=== PATIENT | female | born 1990 | race Caucasian/White ===

== ENCOUNTER 2024-08-18 18:50 | Emergency (ER) | payer SELFPAY ==
[~2024-08-18] VITALS: Ht 162.6 cm; Wt 56.7 kg
--- NOTE | 2024-08-18 19:22 | NUR ---
AT THIS TIME PATIENT IS REFUSING TO HAVE HER LABS DRAWN STATING "I HAVE RIGHTS"
[2024-08-18 19:40] VITALS: BP 124/74; PULSE 66; RESP 20; TEMP 98.7; O2SAT 100
[2024-08-18 19:49] LABS: APPEARANCE,URINE CLOUDY (CLEAR); BILIRUBIN,URINE NEGATIVE (NEGATIVE); COLOR,URINE YELLOW (YELLOW); GLUCOSE, URINE (UA) NEGATIVE (NEGATIVE); KETONES,URINE NEGATIVE (NEGATIVE); LEUKOCYTE ESTERASE ,URINE 75 Leu/uL (NEGATIVE); NITRATE,URINE NEGATIVE (NEGATIVE); OCCULT BLOOD,URINE NEGATIVE (NEGATIVE); PH,URINE 6.5 (5.0-8.0); PROTEIN,URINE 20 mg/dL (NEGATIVE); UROBILINOGEN,URINE 0.2 mg/dL (0.2-1.0)
[2024-08-18 19:53] LABS: ADD UA MICROSCOPIC YES
[2024-08-18 20:03] LABS: AMPHET/METH SCREEN,URINE NEGATIVE (NEGATIVE); BARBITURATE SCREEN, URINE NEGATIVE (NEGATIVE); BENZODIAZEPINES SCREEN,URINE NEGATIVE (NEGATIVE); CANNABINOID SCREEN,URINE NEGATIVE (NEGATIVE); COCAINE SCREEN,URINE POSITIVE (NEGATIVE); OPIATE SCREEN,URINE NEGATIVE (NEGATIVE); PHENCYCLIDINE SCREEN,URINE NEGATIVE (NEGATIVE)
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
[2024-08-18 20:09] LABS: BACTERIA,URINE RARE /HPF (None Seen); MUCUS,URINE RARE LPF (None Seen); SQUAMOUS EPITHELIAL CELL,UR MANY /HPF (0-2); WBC,URINE 26-50 /HPF (0-1)
--- NOTE | 2024-08-18 20:09 | NUR ---
SCREENER IS HERE AT THIS TIME TO ASSESS PATIENT
--- NOTE | 2024-08-18 20:20 | NUR ---
PATIENT CONTINUES TO REFUSE ALL SERVICES AND STATES THAT SHE DOES NOT HAVE TO HAVE BLOOD DRAWN TO BE MEDICALLY CLEARED. AT THIS TIME PATIENT DENIES ANY S/S, NO PAIN VERBALZIED, NO MEDICAL COMPLAINTS AT THIS TIME. EMERGENCY SERVICE WORKER AT SIDE HAS BEEN NOTIFIED THAT PATIENT WILL HVE TO SIGN OUT AGAINST MEDICAL ADVICE.
--- NOTE | 2024-08-18 20:22 | NUR ---
AN AMA FORM WILL BE ISSUED AT THIS TIME.
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
--- NOTE | 2024-08-18 20:34 | NUR ---
V INCIDENT DONE FOR AMA UNIQUE ID [id number]
--- NOTE | 2024-08-18 20:35 | NUR ---
LOGGING EQUIPMENT MECHANIC CONTINUES AT BEDSIDE WITH PATIENT, ALONG WITH A CPS SCREENER, PATIENT HAS SIGNED OUT AMA, AND WILL BE LEAVING WITH LAW ENFORCEMENT. PER LOGGING EQUIPMENT MECHANIC PATIENT IS ONLY BEING DETAINED AND IS NOT UNDER ARREST. PATIENT STATES SHE DID NOT COMPLAIN OF ANY REASONS TO BE BROUGHT INTO THE ED AND PER LOGGING EQUIPMENT MECHANIC [place] REQUIRED A MEDICAL CLEARANCE FOR PATIENT TO BE SENT OVER, BUT PATIENT ONCE AGAIN CONTINUES TO WANT HER BLOOD DRAWN
== END 2024-08-18 20:41 ==
LOC: EDH 18:50 → EEVIPCON 18:50 → EDH 20:41
DX: O99.320 Drug use complicating pregnancy, unspecified trimester (principal); F14.90 Cocaine use, unspecified, uncomplicated; Z3A.09 9 weeks gestation of pregnancy; Z79.899 Other long term (current) drug therapy
CPT/HCPCS: 80305; 81001; 87086; 99283